=== PATIENT | female | born 1965 | race Two or more races ===

== ENCOUNTER 2019-10-17 23:43 | Emergency (ER) | payer MEDICAID ==
[~2019-10-17] VITALS: Ht 162.6 cm; Wt 99.8 kg
[2019-10-18] MEDS ORDERED: cloNIDine HCL 0.1 MG TAB PO ONE (00:30)
[2019-10-18 01:06] LABS: Basophils # (auto) 0 10 ^3/uL (0-0.2); Basophils % (auto) 0.4 % (0.0-2.0); Eosinophils # (auto) 0.2 10 ^3/uL (0-0.8); Hematocrit 44.2 % (36.0-46.0); Hemoglobin 14.9 g/dL (12.2-16.2); Lymphocytes # (auto) 2.4 10 ^3/uL (0.4-5.4); Lymphocytes % (auto) 24.1 % (10.0-50.0); Mean Corpuscular Hemoglobin 29.5 pg (28.0-32.0); Mean Corpuscular Hgb Conc. 33.8 g/dL (32.0-36.0); Mean Corpuscular Volume 87.3 fL (80.0-100.0); Monocytes # (auto) 0.8 10 ^3/uL (0-1.3); Monocytes % (auto) 7.8 % (0.0-12.0); Neutrophils # (auto) 6.5 10 ^3/uL (1.6-8.6); Neutrophils % (auto) 65.7 % (37.0-80.0); Nucleated Red Blood Cells % 0.1 %; Platelet Count (auto) 321 10^3/uL (140-450); Red Blood Cells 5.06 10^6/uL (4.0-5.20); Red Cell Distribution Width 14.3 % (11.8-14.3); White Blood Cell 9.8 10^3/uL (4.4-10.8)
[2019-10-18 01:23] LABS: Alanine Aminotransferase 31 U/L (13-56); Albumin 3.2 g/dL (3.4-5.0); Anion Gap 6 (5-15); Aspartate Aminotransferase 10 U/L (15-37); BUN/Creatinine Ratio 20.3; Blood Urea Nitrogen 14 mg/dL (7-18); Calcium 8.3 mg/dL (8.5-10.1); Carbon Dioxide 25 mmol/L (21-32); Chloride 107 mmol/L (98-107); GFR African American 115 mL/min; GFR Non-African American 95 mL/min; Glucose 136 mg/dL (74-106); Magnesium 2.1 mg/dL (1.6-2.6); Potassium 3.7 mmol/L (3.5-5.1); Sodium 138 mmol/L (136-145)
[2019-10-18 01:28] LABS: Alkaline Phosphatase 64 U/L (45-117); Bilirubin, Total 0.3 mg/dL (0.2-1.0); Total Protein 6.9 g/dL (6.4-8.2)
[2019-10-18 01:30] LABS: INR 0.97 (0.9-1.15); Partial Thromboplastin Time 26.1 sec (23.0-31.2)
[2019-10-18 02:00] VITALS: BP 134/74
== END 2019-10-18 02:24 | disposition home or self-care (01) ==
LOC: EDBD 23:43 → ER 23:49
DX: R07.89 Other chest pain (principal); F41.9 Anxiety disorder, unspecified; E78.5 Hyperlipidemia, unspecified; I10 Essential (primary) hypertension; I25.2 Old myocardial infarction
CPT/HCPCS: 36415; 71045; 80053; 83735; 83880; 84484; 85025; 85610; 85730; 93005

== ENCOUNTER 2020-06-23 21:08 | Inpatient (IN) | payer MEDICAID ==
[~2020-06-23] VITALS: Ht 154.9 cm; Wt 96.6 kg
[2020-06-23 22:15] LABS: Basophils # (auto) 0.1 10 ^3/uL (0-0.2); Eosinophils # (auto) 0.2 10 ^3/uL (0-0.8); Eosinophils % (auto) 1.7 % (0.0-7.0); Hematocrit 43.4 % (36.0-46.0); Hemoglobin 14.8 g/dL (12.2-16.2); Lymphocytes # (auto) 3.1 10 ^3/uL (0.4-5.4); Lymphocytes % (auto) 27.3 % (10.0-50.0); Mean Corpuscular Hemoglobin 29.6 pg (28.0-32.0); Mean Corpuscular Volume 86.9 fL (80.0-100.0); Monocytes # (auto) 0.7 10 ^3/uL (0-1.3); Monocytes % (auto) 6.4 % (0.0-12.0); Neutrophils # (auto) 7.2 10 ^3/uL (1.6-8.6); Neutrophils % (auto) 63.6 % (37.0-80.0); Nucleated Red Blood Cells % 0.1 %; Platelet Count (auto) 362 10^3/uL (140-450); Red Cell Distribution Width 14.4 % (11.8-14.3); White Blood Cell 11.3 10^3/uL (4.4-10.8)
[2020-06-23 22:32] LABS: INR 1.03 (0.9-1.15); Partial Thromboplastin Time 26.6 sec (23.0-31.2)
[2020-06-23 22:39] LABS: Albumin 3.4 g/dL (3.4-5.0); Anion Gap 7 (5-15); Blood Urea Nitrogen 15 mg/dL (7-18); Calcium 8.7 mg/dL (8.5-10.1); Carbon Dioxide 25 mmol/L (21-32); Chloride 108 mmol/L (98-107); Glucose 150 mg/dL (74-106); Magnesium 2.4 mg/dL (1.6-2.6); Potassium 3.6 mmol/L (3.5-5.1); Sodium 140 mmol/L (136-145)
[2020-06-23 22:47] LABS: Alanine Aminotransferase 33 U/L (13-56); Alkaline Phosphatase 65 U/L (45-117); Aspartate Aminotransferase 26 U/L (15-37); BUN/Creatinine Ratio 18.1; Bilirubin, Total 0.3 mg/dL (0.2-1.0); GFR African American 92 mL/min; GFR Non-African American 76 mL/min; Total Protein 7.2 g/dL (6.4-8.2)
[2020-06-24] MEDS ORDERED: ASPirin 325 MG TAB PO ONE (00:45)
[2020-06-24] MEDS ORDERED: MORPHINE SULF INJ 2 MG/ML SYRINGE 1ML IV PRN (03:00)
[2020-06-24] MEDS ORDERED: NITROGLYCERIN 0.4 MG SL TAB SL PRN (03:00)
[2020-06-24] MEDS ORDERED: ONDANSETRON HCL 4 MG/2 ML VIAL IV PRN (03:00)
[2020-06-24] MEDS: SODIUM CHLORIDE 0.9% 1,000 ML IV SCH ×2 (04:21→16:14)
[2020-06-24] MEDS: ENOXAPARIN SOD 100 MG/1 ML SYRINGE SC SCH ×2 (04:22→18:01)
[2020-06-24 07:24] LABS: Basophils # (auto) 0.1 10 ^3/uL (0-0.2); Eosinophils # (auto) 0.3 10 ^3/uL (0-0.8); Hematocrit 42.3 % (36.0-46.0); Hemoglobin 14.3 g/dL (12.2-16.2); Lymphocytes # (auto) 2.9 10 ^3/uL (0.4-5.4); Lymphocytes % (auto) 32.3 % (10.0-50.0); Mean Corpuscular Hemoglobin 29.8 pg (28.0-32.0); Mean Corpuscular Hgb Conc. 33.8 g/dL (32.0-36.0); Mean Corpuscular Volume 88.2 fL (80.0-100.0); Monocytes # (auto) 0.6 10 ^3/uL (0-1.3); Monocytes % (auto) 6.7 % (0.0-12.0); Neutrophils # (auto) 5.1 10 ^3/uL (1.6-8.6); Nucleated Red Blood Cells % 0.1 %; Platelet Count (auto) 341 10^3/uL (140-450); Red Cell Distribution Width 14.4 % (11.8-14.3)
[2020-06-24 07:28] LABS: Calcium 8.5 mg/dL (8.5-10.1); Potassium 3.7 mmol/L (3.5-5.1)
[2020-06-24 07:34] LABS: BUN/Creatinine Ratio 27.3
[2020-06-24] MEDS: METOPROLOL TARTRATE 25 MG TAB PO SCH ×2 (10:33→21:04)
[2020-06-24] MEDS: ATORVASTATIN 20 MG TAB PO SCH (10:33)
[2020-06-24] MEDS: CLOPIDOGREL BISULFATE 75 MG TAB PO SCH (10:33)
[2020-06-24] MEDS: ASPirin 81 mg TAB PO SCH (10:33)
[2020-06-24 13:00] VITALS: BP 161/99
[2020-06-24] MEDS ORDERED: POLYETHYLENE GLYCOL 17 GM PWDR PO PRN (14:45)
[2020-06-24 17:00] VITALS: BP 164/95
[2020-06-24] MEDS ORDERED: ATO40T PO (17:59)
[2020-06-24] MEDS ORDERED: CLOP75TA70 PO (17:59)
[2020-06-24] MEDS ORDERED: POM ×2 (17:59)
[2020-06-24] MEDS ORDERED: AML5T PO (17:59)
[2020-06-24 21:27] VITALS: BP 156/72
[2020-06-25 05:46] VITALS: BP 161/72
[2020-06-25] MEDS: SODIUM CHLORIDE 0.9% 1,000 ML IV SCH (05:54)
[2020-06-25] MEDS: ENOXAPARIN SOD 100 MG/1 ML SYRINGE SC SCH (05:54)
[2020-06-25] MEDS: hydrALAZINE HCL 20 MG/ML VL IV PRN ×2 (06:27→23:44)
[2020-06-25] MEDS: ATORVASTATIN 20 MG TAB PO SCH (08:16)
[2020-06-25] MEDS: ASPirin 81 mg TAB PO SCH (08:16)
[2020-06-25] MEDS: METOPROLOL TARTRATE 25 MG TAB PO SCH ×2 (08:16→22:34)
[2020-06-25] MEDS: CLOPIDOGREL BISULFATE 75 MG TAB PO SCH (08:16)
[2020-06-25] MEDS ORDERED: amLODIPine BESYLATE 5 MG TAB PO ONE (08:30)
[2020-06-25 09:00] VITALS: BP 194/96
[2020-06-25] MEDS ORDERED: ADENOSINE 81 MG in GIVE UN-DILUTED 0 ML IV STA (11:52)
[2020-06-25 12:10] VITALS: BP 180/99
[2020-06-25] MEDS ORDERED: METOPROLOL TARTRATE 25 MG TAB PO ONE (14:00)
[2020-06-25 17:00] VITALS: BP 163/90
[2020-06-25] MEDS: ENALAPRILAT 1.25 MG/ML-1ML VIAL IV PRN (20:32)
[2020-06-25 22:00] VITALS: BP 152/83
[2020-06-25] MEDS ORDERED: diphenhdrAMINE HCL 25 MG CAP PO ONE (22:15)
[2020-06-26 05:00] VITALS: BP 162/92
[2020-06-26] MEDS: ENALAPRILAT 1.25 MG/ML-1ML VIAL IV PRN (06:42)
[2020-06-26 07:29] LABS: INR 0.99 (0.9-1.15); Partial Thromboplastin Time 26.8 sec (23.0-31.2)
[2020-06-26 08:00] VITALS: BP 148/72
[2020-06-26] MEDS ORDERED: IODIXANOL 320MG/ML 100ML BTL IV ONE ×2 (08:40→09:52)
[2020-06-26] MEDS ORDERED: LIDOCAINE 2%HCL (LOCAL ANESTH.) INJ 20ML MDV ONE (08:40)
[2020-06-26] MEDS ORDERED: MIDAZOLAM HCL 1MG/1ML-2 ML VIAL ONE (08:59)
[2020-06-26] MEDS ORDERED: VERAPAMIL 2.5MG/ML INJ 2ML VIAL IV ONE (08:59)
[2020-06-26] MEDS ORDERED: ANGIOMAX 250 MG VIAL IV ONE (08:59)
[2020-06-26] MEDS ORDERED: HEPARIN SODIUM (PORCINE) 5000 UNITS/ML 1ML VIAL ONE (08:59)
[2020-06-26] MEDS ORDERED: fentaNYL CITRATE 100 MCG/2 ML VL ONE (08:59)
[2020-06-26] MEDS ORDERED: SODIUM CHL 0.9% 50 ML ONE (08:59)
[2020-06-26] MEDS ORDERED: hydrALAZINE HCL 20 MG/ML VL ONE (09:51)
[2020-06-26] MEDS ORDERED: LABETALOL HCL 5 MG/ML ML 20ML VIAL IV ONE (09:56)
[2020-06-26] MEDS: ASPirin 81 mg TAB PO SCH (10:00)
[2020-06-26] MEDS ORDERED: ASPirin 81 mg TAB ONE (10:05)
[2020-06-26] MEDS ORDERED: TICAGRELOR 90 MG TAB ONE (10:05)
[2020-06-26] MEDS: ATORVASTATIN 20 MG TAB PO SCH (12:41)
[2020-06-26] MEDS: amLODIPine BESYLATE 5 MG TAB PO SCH (12:42)
[2020-06-26] MEDS: METOPROLOL TARTRATE 25 MG TAB PO SCH ×2 (12:42→21:28)
[2020-06-26] MEDS: CLOPIDOGREL BISULFATE 75 MG TAB PO SCH (12:43)
[2020-06-26 13:00] VITALS: BP 161/69
[2020-06-26] MEDS: hydrALAZINE HCL 20 MG/ML VL IV PRN ×2 (16:02→23:38)
[2020-06-26 17:00] VITALS: BP 155/77
[2020-06-26 22:00] VITALS: BP 130/66
[2020-06-26] MEDS ORDERED: ZOLPIDEM TARTRATE 5 MG TAB PO PRN (22:00)
[2020-06-27 05:25] VITALS: BP 150/75
[2020-06-27 08:00] VITALS: BP 156/80
[2020-06-27] MEDS: ASPirin 81 mg TAB PO SCH (08:40)
[2020-06-27] MEDS: METOPROLOL TARTRATE 25 MG TAB PO SCH (08:41)
[2020-06-27] MEDS: CLOPIDOGREL BISULFATE 75 MG TAB PO SCH (08:41)
[2020-06-27] MEDS: ATORVASTATIN 20 MG TAB PO SCH (08:41)
[2020-06-27] MEDS: amLODIPine BESYLATE 5 MG TAB PO SCH (08:42)
[2020-06-27] MEDS ORDERED: CLOP75TA70 PO (11:31)
[2020-06-27] MEDS ORDERED: ASPI1CHW15 PO (11:31)
[2020-06-27] MEDS ORDERED: ATOR-47 PO (11:31)
[2020-06-27] MEDS ORDERED: AMLO-496 PO (11:31)
[2020-06-27] MEDS ORDERED: MET25T PO (11:31)
[2020-06-27 12:00] VITALS: BP 156/82
[2020-06-27 12:31] VITALS: BP 156/82
== END 2020-06-27 13:30 | disposition home health service (06) | DRG 175 ==
LOC: EDBD 21:08 → ER 21:13 → TELE 06-24 03:19 → TELE-WESTW 06-24 11:42
PROVIDERS: ADMIT Hospitalist; ATTEND Hospitalist
PROC: 027034Z Dilation of Coronary Artery, One Artery with Drug-eluting Intraluminal Device, Percutaneous Approach (ICD-10-PCS; principal; 2020-06-26)
PROC: 4A023N7 Measurement of Cardiac Sampling and Pressure, Left Heart, Percutaneous Approach (ICD-10-PCS; 2020-06-26)
PROC: B211YZZ Fluoroscopy of Multiple Coronary Arteries using Other Contrast (ICD-10-PCS; 2020-06-26)
DX: I25.110 Atherosclerotic heart disease of native coronary artery with unstable angina pectoris (principal); E66.01 Morbid (severe) obesity due to excess calories; I10 Essential (primary) hypertension; E78.5 Hyperlipidemia, unspecified; Z68.37 Body mass index [BMI] 37.0-37.9, adult; Z20.822 Contact with and (suspected) exposure to COVID-19; F17.210 Nicotine dependence, cigarettes, uncomplicated; Z91.14 Patient's other noncompliance with medication regimen; I25.2 Old myocardial infarction; Z71.6 Tobacco abuse counseling
CPT/HCPCS: 36415; 71045; 78452; 80048; 80053; 80061; 81025; 83036; 83735; 83880; 84443; 84484; 85025; 85379; 85610; 85730; 86850; 86900; 86901; 87426; 93005; 93017; 93306; 99152; 99153; C1874; G0378; J0153; J2250; J2405; Q9967

== ENCOUNTER 2020-06-28 23:52 | Emergency (ER) | payer MEDICAID ==
[~2020-06-28] VITALS: Ht 154.9 cm; Wt 88.0 kg
[~2020-06-28 23:52] MED LIST: AMLO-496 PO; ASPI1CHW15 PO; ATOR-47 PO; CLOP75TA70 PO; MET25T PO
[2020-06-29] MEDS ORDERED: cloNIDine 0.2 mg/24hr 7DAY PATCH TD ONE (00:15)
[2020-06-29 00:27] LABS: Basophils # (auto) 0.1 10 ^3/uL (0-0.2); Basophils % (auto) 0.6 % (0.0-2.0); Eosinophils # (auto) 0.3 10 ^3/uL (0-0.8); Eosinophils % (auto) 2.2 % (0.0-7.0); Hematocrit 44.4 % (36.0-46.0); Lymphocytes # (auto) 2.2 10 ^3/uL (0.4-5.4); Lymphocytes % (auto) 19.1 % (10.0-50.0); Mean Corpuscular Hemoglobin 29.6 pg (28.0-32.0); Mean Corpuscular Hgb Conc. 33.8 g/dL (32.0-36.0); Mean Corpuscular Volume 87.4 fL (80.0-100.0); Monocytes # (auto) 0.8 10 ^3/uL (0-1.3); Monocytes % (auto) 6.9 % (0.0-12.0); Neutrophils # (auto) 8.3 10 ^3/uL (1.6-8.6); Neutrophils % (auto) 71.2 % (37.0-80.0); Nucleated Red Blood Cells % 0.1 %; Platelet Count (auto) 351 10^3/uL (140-450); Red Blood Cells 5.09 10^6/uL (4.0-5.20); Red Cell Distribution Width 14.3 % (11.8-14.3); White Blood Cell 11.6 10^3/uL (4.4-10.8)
[2020-06-29] MEDS ORDERED: cloNIDine HCL 0.1 MG TAB PO ONE (00:30)
[2020-06-29 00:48] LABS: Albumin 3.7 g/dL (3.4-5.0); BUN/Creatinine Ratio 23.5; Magnesium 2.1 mg/dL (1.6-2.6); Potassium 3.9 mmol/L (3.5-5.1)
[2020-06-29 00:53] LABS: Bilirubin, Total 0.3 mg/dL (0.2-1.0); Total Protein 7.6 g/dL (6.4-8.2)
[2020-06-29 00:58] LABS: INR 1.03 (0.9-1.15); Partial Thromboplastin Time 26.5 sec (23.0-31.2)
[2020-06-29 01:31] LABS: Urine Bacteria FEW /hpf (None Seen); Urine Blood TRACE /uL (Negative); Urine Specific Gravity 1.016 (1.001-1.035); Urine WBC 9 /hpf (0 - 5)
[2020-06-29] MEDS ORDERED: ENOXAPARIN SOD 100 MG/1 ML SYRINGE SC ONE (02:00)
[2020-06-29] MEDS ORDERED: cefTRIAXone 1GM/50ML D5W 50 ML IV ONE (02:15)
[2020-06-29 02:33] VITALS: BP 167/72
== END 2020-06-29 04:10 | disposition left against medical advice (07) ==
LOC: EDBD 23:52 → ER 23:52
DX: I16.0 Hypertensive urgency (principal); I10 Essential (primary) hypertension; R07.9 Chest pain, unspecified; R42 Dizziness and giddiness; R77.8 Other specified abnormalities of plasma proteins; N39.0 Urinary tract infection, site not specified; I25.2 Old myocardial infarction
CPT/HCPCS: 36415; 71046; 80053; 81001; 83735; 83880; 84484; 85025; 85379; 85610; 85730; 87086; 93005; 96372; 99285; J0696; J1650

== ENCOUNTER 2022-03-25 22:38 | Inpatient (IN) | payer MEDICAID ==
[~2022-03-25] VITALS: Ht 154.9 cm; Wt 97.0 kg
[2022-03-25] MEDS ORDERED: amLODIPine BESYLATE 5 MG TAB PO ONE (23:00)
[2022-03-25 23:04] LABS: Basophils # (auto) 0.1 10 ^3/uL (0-0.2); Basophils % (auto) 1.2 % (0.0-2.0); Eosinophils # (auto) 0.1 10 ^3/uL (0-0.8); Eosinophils % (auto) 1.2 % (0.0-7.0); Hemoglobin 13.7 g/dL (12.2-16.2); Lymphocytes # (auto) 2.5 10 ^3/uL (0.4-5.4); Mean Corpuscular Hgb Conc. 32.5 g/dL (32.0-36.0); Mean Corpuscular Volume 89.3 fL (80.0-100.0); Monocytes # (auto) 0.6 10 ^3/uL (0-1.3); Monocytes % (auto) 6.6 % (0.0-12.0); Neutrophils # (auto) 6.3 10 ^3/uL (1.6-8.6); Nucleated Red Blood Cells % 0.1 %; Red Cell Distribution Width 14.7 % (11.8-14.3); White Blood Cell 9.7 10^3/uL (4.4-10.8)
[2022-03-25 23:20] LABS: INR 1.03 (0.9-1.15)
[2022-03-25 23:23] LABS: BUN/Creatinine Ratio 15.2; Potassium 3.3 mmol/L (3.5-5.1)
[2022-03-25 23:26] LABS: Bilirubin, Total 0.2 mg/dL (0.2-1.0)
[2022-03-26] MEDS ORDERED: ACETAMINOPHEN 325 MG TAB PO PRN (01:15)
[2022-03-26] MEDS ORDERED: NITROGLYCERIN 0.4 MG SL TAB SL PRN (01:15)
[2022-03-26] MEDS ORDERED: ONDANSETRON HCL 4 MG/2 ML VIAL IV PRN (01:15)
[2022-03-26] MEDS ORDERED: MORPHINE SULFATE INJ 2 MG/ml SYRG IV PRN (01:15)
[2022-03-26] MEDS ORDERED: METOPROLOL TARTRATE 25 MG TAB PO SCH ×2 (10:00→13:30)
[2022-03-26] MEDS: ISOSORBIDE MONONITRATE ER 60 MG TAB PO SCH (10:59)
[2022-03-26] MEDS: PANTOPRAZOLE 40 MG TAB PO SCH (11:00)
[2022-03-26] MEDS: amLODIPine BESYLATE 5 MG TAB PO SCH (11:00)
[2022-03-26] MEDS: ASPirin 81 mg TAB PO SCH (11:00)
[2022-03-26] MEDS: LABETALOL HCL 5 MG/ML 4ML SYRINGE IV PRN (20:16)
[2022-03-26] MEDS: ENOXAPARIN SOD 40 MG/0.4 ML SYRINGE SC SCH (20:16)
[2022-03-26] MEDS: TEMAZEPAM 15 MG CAP PO PRN (20:24)
[2022-03-26] MEDS: METOPROLOL TARTRATE 25 MG TAB PO SCH ×2 (23:36→23:40)
[2022-03-27] MEDS: ATORVASTATIN 20 MG TAB PO SCH ×2 (00:23→21:41)
[2022-03-27] MEDS: LABETALOL HCL 5 MG/ML 4ML SYRINGE IV PRN ×3 (04:00→23:16)
[2022-03-27 04:57] LABS: Basophils # (auto) 0.1 10 ^3/uL (0-0.2); Basophils % (auto) 1.3 % (0.0-2.0); Eosinophils # (auto) 0.1 10 ^3/uL (0-0.8); Eosinophils % (auto) 1.3 % (0.0-7.0); Hematocrit 45.1 % (36.0-46.0); Hemoglobin 14.5 g/dL (12.2-16.2); Lymphocytes % (auto) 29.9 % (10.0-50.0); Mean Corpuscular Hemoglobin 28.7 pg (28.0-32.0); Mean Corpuscular Hgb Conc. 32.2 g/dL (32.0-36.0); Mean Corpuscular Volume 89.2 fL (80.0-100.0); Monocytes # (auto) 0.8 10 ^3/uL (0-1.3); Monocytes % (auto) 7.5 % (0.0-12.0); Nucleated Red Blood Cells % 0.1 %; Red Blood Cells 5.06 10^6/uL (4.0-5.20); Red Cell Distribution Width 14.7 % (11.8-14.3)
[2022-03-27 05:07] LABS: Calcium 9.2 mg/dL (8.5-10.1); Potassium 3.8 mmol/L (3.5-5.1)
[2022-03-27 05:08] LABS: BUN/Creatinine Ratio 21.1
[2022-03-27] MEDS: ASPirin 81 mg TAB PO SCH (11:01)
[2022-03-27] MEDS: amLODIPine BESYLATE 5 MG TAB PO SCH (11:01)
[2022-03-27] MEDS: METOPROLOL TARTRATE 25 MG TAB PO SCH ×2 (11:02→21:41)
[2022-03-27] MEDS: ENOXAPARIN SOD 40 MG/0.4 ML SYRINGE SC SCH (11:04)
[2022-03-27] MEDS: ISOSORBIDE MONONITRATE ER 60 MG TAB PO SCH (11:04)
[2022-03-27] MEDS: PANTOPRAZOLE 40 MG TAB PO SCH (11:15)
[2022-03-27] MEDS ORDERED: LOSARTAN POTASSIUM 50 MG TAB PO ONE (11:15)
[2022-03-27 14:20] VITALS: BP 142/77
[2022-03-27 16:25] VITALS: BP 164/66
[2022-03-27] MEDS: TEMAZEPAM 15 MG CAP PO PRN (21:48)
[2022-03-27 22:00] VITALS: BP 139/56
[2022-03-28 05:00] VITALS: BP 160/79
[2022-03-28] MEDS: METOPROLOL TARTRATE 25 MG TAB PO SCH (09:35)
[2022-03-28] MEDS: ASPirin 81 mg TAB PO SCH (09:35)
[2022-03-28] MEDS: PANTOPRAZOLE 40 MG TAB PO SCH (09:35)
[2022-03-28] MEDS: ISOSORBIDE MONONITRATE ER 60 MG TAB PO SCH (09:37)
[2022-03-28] MEDS: amLODIPine BESYLATE 5 MG TAB PO SCH (09:38)
[2022-03-28] MEDS: ENOXAPARIN SOD 40 MG/0.4 ML SYRINGE SC SCH (09:38)
[2022-03-28] MEDS ORDERED: LOSARTAN POTASSIUM 50 MG TAB PO SCH (10:00)
[2022-03-28] MEDS ORDERED: METOPROLOL TARTRATE 50 MG TAB PO ONE (11:30)
[2022-03-28] MEDS ORDERED: HCTZ 25 MG TAB PO ONE (11:30)
[2022-03-28] MEDS ORDERED: LISINOPRIL 20 MG TAB PO ONE (11:30)
[2022-03-28 12:00] VITALS: BP 162/86
[2022-03-28] MEDS ORDERED: BISA-65 PO (12:09)
[2022-03-28] MEDS ORDERED: NITR0.4S29 SL (13:04)
[2022-03-28] MEDS ORDERED: ALBU2TAB4 INH (13:04)
[2022-03-28] MEDS ORDERED: OMEP20TA PO (13:04)
[2022-03-28] MEDS ORDERED: HYDR25TA5 PO (13:04)
[2022-03-28] MEDS ORDERED: PHEN1LIQ PO (13:04)
[2022-03-28] MEDS ORDERED: CLON0.2D6 PO (13:04)
[2022-03-28] MEDS ORDERED: LISI20TA28 PO (13:04)
[2022-03-28] MEDS ORDERED: LORA0.5T20 PO (13:04)
[2022-03-28] MEDS ORDERED: ISOS1TAB28 PO (13:04)
[2022-03-28] MEDS ORDERED: METO-158 PO (13:04)
[2022-03-28] MEDS ORDERED: FAMO-12 PO (13:04)
[2022-03-28] MEDS ORDERED: METOPROLOL TARTRATE 50 MG TAB PO SCH (22:00)
[2022-03-29] MEDS ORDERED: ISOSORBIDE MONONITRATE ER 60 MG TAB PO SCH (10:00)
[2022-03-29] MEDS ORDERED: CLOPIDOGREL BISULFATE 75 MG TAB PO SCH (10:00)
[2022-03-29] MEDS ORDERED: HCTZ 25 MG TAB PO SCH (10:00)
[2022-03-29] MEDS ORDERED: LISINOPRIL 20 MG TAB PO SCH (10:00)
== END 2022-03-28 14:00 | disposition left against medical advice (07) | DRG 198 ==
LOC: ER 22:38 → EDBD 22:38 → TELE 03-26 01:15 → TELE-WESTW 03-27 14:13
PROVIDERS: ADMIT Nurse Practitioner; ATTEND Internal Medicine
DX: R07.89 Other chest pain (principal); I25.10 Atherosclerotic heart disease of native coronary artery without angina pectoris; E78.5 Hyperlipidemia, unspecified; I16.1 Hypertensive emergency; F17.210 Nicotine dependence, cigarettes, uncomplicated; I10 Essential (primary) hypertension; Z53.29 Procedure and treatment not carried out because of patient's decision for other reasons; N93.9 Abnormal uterine and vaginal bleeding, unspecified; Z83.3 Family history of diabetes mellitus; Z95.5 Presence of coronary angioplasty implant and graft; I25.2 Old myocardial infarction; Z79.02 Long term (current) use of antithrombotics/antiplatelets; Z79.899 Other long term (current) drug therapy
CPT/HCPCS: 36415; 80048; 80053; 83880; 84484; 85025; 85610; 87426; 93005; 93306; G0378; J2405; J3490

== ENCOUNTER 2023-05-12 20:50 | Inpatient (IN) | payer MEDICAID ==
[~2023-05-12] VITALS: Ht 154.9 cm; Wt 99.8 kg
[~2023-05-12 20:50] MED LIST changes: +ALBU2TAB11 INH; -AMLO-496 PO; +AMLO1TAB23 PO; +ASPI-736 PO; -ASPI1CHW15 PO; +BISA-65 PO; +CLON0.2D6 PO; +FAMO-12 PO; +HYDR25TA5 PO; +ISOS1TAB28 PO; +LISI20TA56 PO; +LORA-1121 PO; -MET25T PO; +METO-158 PO; +NITR0.4S29 SL; +OMEP20TA PO; +PHEN1LIQ PO
[2023-05-12 21:30] LABS: Urine Bacteria NONE SEEN /hpf (None Seen); Urine Blood Negative /uL (Negative); Urine Clarity Clear (Clear); Urine Color Yellow (Yellow); Urine Protein, UAD 1+ (Negative); Urine Specific Gravity 1.017 (1.001-1.035); Urine Urobilinogen Normal (Negative); Urine WBC 1 /hpf (0 - 5); Urine pH 6.5 (5.0-8.0)
[2023-05-12 21:53] LABS: Basophils # (auto) 0.1 10 ^3/uL (0-0.2); Basophils % (auto) 0.9 % (0.0-2.0); Eosinophils # (auto) 0.2 10 ^3/uL (0-0.8); Eosinophils % (auto) 2.4 % (0.0-7.0); Hematocrit 46.3 % (36.0-46.0); Hemoglobin 15.4 g/dL (12.2-16.2); Lymphocytes # (auto) 2.9 10 ^3/uL (0.4-5.4); Lymphocytes % (auto) 30.4 % (10.0-50.0); Mean Corpuscular Hemoglobin 28.4 pg (28.0-32.0); Mean Corpuscular Hgb Conc. 33.3 g/dL (32.0-36.0); Mean Corpuscular Volume 85.1 fL (80.0-100.0); Monocytes # (auto) 0.6 10 ^3/uL (0-1.3); Monocytes % (auto) 6.5 % (0.0-12.0); Neutrophils # (auto) 5.7 10 ^3/uL (1.6-8.6); Neutrophils % (auto) 59.8 % (37.0-80.0); Nucleated Red Blood Cells % 0.1 %; Red Blood Cells 5.44 10^6/uL (4.0-5.20); Red Cell Distribution Width 14.1 % (11.8-14.3); White Blood Cell 9.5 10^3/uL (4.4-10.8)
[2023-05-12 22:05] LABS: Chloride 108 mmol/L (98-107); Sodium 140 mmol/L (136-145)
[2023-05-12 22:06] LABS: Anion Gap 4 (5-15); Carbon Dioxide 28 mmol/L (20-30)
[2023-05-12 22:07] LABS: Calcium 10.2 mg/dL (8.5-10.1)
[2023-05-12 22:11] LABS: Glucose 168 mg/dL (74-106)
[2023-05-12 22:12] LABS: BUN/Creatinine Ratio 12.1 (10.0-20.0); Blood Urea Nitrogen 8 mg/dL (9-23)
[2023-05-12] MEDS ORDERED: ONDANSETRON HCL 4 MG/2 ML VIAL IV PRN (23:15)
[2023-05-13] VITALS (9 sets, daily range): BP systolic 154–218; BP diastolic 58–84; PULSE 72–94; RESP 18–19; TEMP 97.8–97.9; O2SAT 91–97
[2023-05-13] MEDS: MORPHINE SULFATE 4 MG/ML SYR/VIAL IV ONE (00:32)
[2023-05-13] MEDS: LABETALOL HCL 5 MG/ML 4ML SYRINGE IV ONE (00:32)
[2023-05-13] MEDS: KETOROLAC TROMETH 30 MG/ML 1ML VIAL IV ONE (00:32)
[2023-05-13] MEDS: HYDROcodone-ACET 5/325MG TAB PO PRN (00:33)
[2023-05-13] MEDS: hydrALAZINE HCL 20 MG/ML VL IV PRN (00:34)
[2023-05-13 04:46] LABS: Chloride 109 mmol/L (98-107); Potassium 3.4 mmol/L (3.5-5.1); Sodium 141 mmol/L (136-145)
[2023-05-13 04:47] LABS: Anion Gap 6 (5-15); Calcium 9.9 mg/dL (8.5-10.1); Carbon Dioxide 26 mmol/L (20-30)
[2023-05-13 04:52] LABS: Blood Urea Nitrogen 13 mg/dL (9-23); Glucose 170 mg/dL (74-106)
[2023-05-13] MEDS: KETOROLAC TROMETH 30 MG/ML 1ML VIAL IV PRN (05:17)
[2023-05-13] MEDS: POTASSIUM CHL 20 Meq TABLET PO ONE ×2 (07:12→10:34)
[2023-05-13] MEDS ORDERED: LOSA100T25 PO (09:29)
[2023-05-13] MEDS ORDERED: PANT40TA2 PO (09:29)
[2023-05-13] MEDS ORDERED: HYDR-4297 PO (09:29)
[2023-05-13] MEDS: ISOSORBIDE MONONITRATE ER 60 MG TAB PO SCH (09:47)
[2023-05-13] MEDS: CLOPIDOGREL BISULFATE 75 MG TAB PO SCH (09:47)
[2023-05-13] MEDS: ACETAMINOPHEN 325 MG TAB PO PRN (09:47)
[2023-05-13] MEDS: LOSARTAN POTASSIUM 50 MG TAB PO SCH (09:48)
[2023-05-13] MEDS: amLODIPine BESYLATE 5 MG TAB PO SCH (09:48)
[2023-05-13] MEDS: FUROSEMIDE 20 MG TAB PO SCH (10:34)
[2023-05-13 13:56] LABS: LDL Cholesterol 168 mg/dL (< 100); Triglycerides 264 mg/dL (< 150)
[2023-05-13 13:58] LABS: Cholesterol 219 mg/dL (< 200); HDL Cholesterol 27 mg/dL (40-59)
[2023-05-13] MEDS: ATORVASTATIN 20 MG TAB PO SCH (21:36)
[2023-05-13] MEDS ORDERED: MORPHINE SULFATE INJ 2 MG/ml SYRG IV PRN (22:45)
[2023-05-13] MEDS: dilTIAZem 25 MG/5 ML VIAL IV ONE (22:48)
[2023-05-13] MEDS: NITROGLYCERIN 0.4 MG SL TAB SL PRN (23:03)
[2023-05-14] VITALS (7 sets, daily range): BP systolic 157–209; BP diastolic 50–88; PULSE 73–89; RESP 16–20; TEMP 97.1–98.1; O2SAT 94–96
[2023-05-14 06:17] LABS: Basophils # (auto) 0.1 10 ^3/uL (0-0.2); Basophils % (auto) 0.8 % (0.0-2.0); Eosinophils # (auto) 0.2 10 ^3/uL (0-0.8); Eosinophils % (auto) 1.5 % (0.0-7.0); Hematocrit 45.7 % (36.0-46.0); Hemoglobin 15.4 g/dL (12.2-16.2); Lymphocytes # (auto) 2.2 10 ^3/uL (0.4-5.4); Lymphocytes % (auto) 22.3 % (10.0-50.0); Mean Corpuscular Hemoglobin 28.8 pg (28.0-32.0); Mean Corpuscular Hgb Conc. 33.7 g/dL (32.0-36.0); Mean Corpuscular Volume 85.6 fL (80.0-100.0); Monocytes # (auto) 0.7 10 ^3/uL (0-1.3); Monocytes % (auto) 6.8 % (0.0-12.0); Neutrophils # (auto) 6.9 10 ^3/uL (1.6-8.6); Neutrophils % (auto) 68.6 % (37.0-80.0); Nucleated Red Blood Cells % 0.1 %; Red Blood Cells 5.33 10^6/uL (4.0-5.20); Red Cell Distribution Width 14.4 % (11.8-14.3)
[2023-05-14 06:34] LABS: Alanine Aminotransferase 27 U/L (7-40); Albumin 4.3 g/dL (3.2-4.8); Alkaline Phosphatase 64 U/L (46-116); Anion Gap 6 (5-15); Aspartate Aminotransferase 12 U/L (13-40); BUN/Creatinine Ratio 14.9 (10.0-20.0); Bilirubin, Total 0.6 mg/dL (0.2-1.0); Blood Urea Nitrogen 10 mg/dL (9-23); Calcium 9.4 mg/dL (8.5-10.1); Carbon Dioxide 26 mmol/L (20-30); Chloride 108 mmol/L (98-107); Glucose 149 mg/dL (74-106); Potassium 3.6 mmol/L (3.5-5.1); Sodium 140 mmol/L (136-145); Total Protein 6.6 g/dL (5.7-8.2)
[2023-05-14] MEDS: hydrALAZINE HCL 25 MG TAB PO ONE (10:07)
[2023-05-14] MEDS: LABETALOL HCL 5 MG/ML 4ML SYRINGE IV PRN (11:42)
[2023-05-14] MEDS ORDERED: ALBU108A5 INH (16:51)
[2023-05-14] MEDS: cloNIDine HCL 0.1 MG TAB PO SCH (20:01)
[2023-05-15 05:00] VITALS: BP 152/53; PULSE 79; RESP 20; TEMP 97.9; O2SAT 94
[2023-05-15 06:16] LABS: Basophils # (auto) 0.1 10 ^3/uL (0-0.2); Basophils % (auto) 1.2 % (0.0-2.0); Eosinophils # (auto) 0.2 10 ^3/uL (0-0.8); Eosinophils % (auto) 2.2 % (0.0-7.0); Hemoglobin 14.5 g/dL (12.2-16.2); Lymphocytes # (auto) 2.3 10 ^3/uL (0.4-5.4); Lymphocytes % (auto) 27.4 % (10.0-50.0); Mean Corpuscular Hemoglobin 28.6 pg (28.0-32.0); Mean Corpuscular Volume 86.5 fL (80.0-100.0); Monocytes # (auto) 0.6 10 ^3/uL (0-1.3); Monocytes % (auto) 6.8 % (0.0-12.0); Neutrophils # (auto) 5.3 10 ^3/uL (1.6-8.6); Neutrophils % (auto) 62.4 % (37.0-80.0); Nucleated Red Blood Cells % 0.1 %; Red Blood Cells 5.09 10^6/uL (4.0-5.20); Red Cell Distribution Width 14.2 % (11.8-14.3); White Blood Cell 8.5 10^3/uL (4.4-10.8)
[2023-05-15 06:29] LABS: Alanine Aminotransferase 21 U/L (7-40); Alkaline Phosphatase 64 U/L (46-116); Anion Gap 3 (5-15); BUN/Creatinine Ratio 19.1 (10.0-20.0); Blood Urea Nitrogen 13 mg/dL (9-23); Calcium 9.3 mg/dL (8.5-10.1); Carbon Dioxide 26 mmol/L (20-30); Chloride 110 mmol/L (98-107); Glucose 190 mg/dL (74-106); Potassium 3.9 mmol/L (3.5-5.1); Sodium 139 mmol/L (136-145)
[2023-05-15 06:30] LABS: Albumin 4.1 g/dL (3.2-4.8); Aspartate Aminotransferase 15 U/L (13-40); Bilirubin, Total 0.4 mg/dL (0.2-1.0); Total Protein 6.4 g/dL (5.7-8.2)
[2023-05-15 08:00] VITALS: PULSE 68; PULSE 71; RESP 20; O2SAT 98
[2023-05-15 08:30] VITALS: BP 174/77; PULSE 68; RESP 20; TEMP 97.7; O2SAT 98
[2023-05-15] MEDS ORDERED: HYDR-4902 PO (10:01)
[2023-05-15] MEDS ORDERED: CYCL-838 PO (10:04)
[2023-05-15 12:35] VITALS: BP 143/65; PULSE 67; RESP 18; TEMP 97.7; O2SAT 96
[2023-05-15] MEDS: CYCLOBENZAPRINE HCL 10 MG TAB PO SCH (14:21)
[2023-05-15] MEDS ORDERED: DOCUSATE SOD 100 MG CAP PO PRN (14:30)
[2023-05-15] MEDS ORDERED: CLON0.1T PO (15:52)
[2023-05-15 16:00] VITALS: BP 128/53; PULSE 70; RESP 14; TEMP 98.6; O2SAT 96
[2023-05-15] MEDS: DOCUSATE SOD 100 MG CAP PO ONE (16:39)
[2023-05-15 16:47] VITALS: BP 128/53; PULSE 70; RESP 14; TEMP 98.6; O2SAT 95
== END 2023-05-15 17:17 | disposition home or self-care (01) | DRG 347 ==
LOC: EDBD 20:50 → ER 20:50 → OVERFLOW 23:10 → EAST 05-13 06:26 → TELE-EAST 05-14 00:09
PROVIDERS: ADMIT Internal Medicine Pulmonary Disease; ATTEND Internal Medicine Pulmonary Disease
DX: M51.16 Intervertebral disc disorders with radiculopathy, lumbar region (principal); E11.9 Type 2 diabetes mellitus without complications; I16.0 Hypertensive urgency; M48.062 Spinal stenosis, lumbar region with neurogenic claudication; M48.07 Spinal stenosis, lumbosacral region; E78.5 Hyperlipidemia, unspecified; F17.210 Nicotine dependence, cigarettes, uncomplicated; I10 Essential (primary) hypertension; Z91.199 Patient's noncompliance with other medical treatment and regimen due to unspecified reason; Z79.4 Long term (current) use of insulin
CPT/HCPCS: 36415; 71045; 72148; 80048; 80053; 80061; 81001; 83036; 83880; 84484; 85025; 93005; 93306; G0378; J1885; J3490